=== PATIENT | male | born 1960 | race Caucasian/White ===

== ENCOUNTER 2017-01-31 17:33 | Inpatient (IN) ==
[2017-01-31 18:15] LABS: Bilirubin,Urine Negative (Negative); Blood,Urine Negative (Negative); Clarity,Urine Clear (Clear); Color,Urine Yellow (Yellow); Glucose,Urine (UA) Normal (Normal); Ketones,Urine Negative (Negative); Leukocyte Esterase,Urine Negative (Negative); Nitrite,Urine Negative (Negative); Protein,Urine Negative (Neg-Trace); Specific Gravity,Urine < 1.005 (1.010-1.025); Urobilinogen,Urine Normal (Normal)
[2017-01-31 18:17] LABS: Basophils # 0.1 K/mcL (0.0-0.2); Basophils % 0.5 %; Eosinophils # 0.2 K/mcL (0.0-0.6); Hematocrit 48.6 % (37.5-50.1); Hemoglobin 16.6 g/dL (12.9-16.9); Immature Granulocytes % 0.3 % (0-4); Lymphocytes # 2.6 K/mcL (0.6-4.6); Lymphocytes % 26.4 %; Mean Corpuscular HGB Conc 34.2 g/dL (31.6-35.5); Mean Corpuscular Hemoglobin 30.7 pg (28.0-33.3); Mean Platelet Volume 11.3 fL (9.4-12.4); Monocytes # 0.5 K/mcL (0.0-1.3); Monocytes % 5.3 %; Neutrophils # 6.5 K/mcL (1.6-8.9); Platelet Count 184 K/mcL (140-400); Red Cell Distribution Width 14.3 % (11.5-14.5); Segmented Neutrophils % 65.5 %
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
[2017-01-31 18:21] LABS: Amphetamine Screen,Urine Negative ng/mL (Cutoff=1000); Barbiturate Screen,Urine Negative ng/mL (Cutoff=200); Benzodiazepines Screen,Urine Negative ng/mL (Cutoff=200); Cannabinoid Screen,Urine Negative ng/mL (Cutoff = 50); Cocaine Screen,Urine Negative ng/mL (Cutoff= 300); Opiate Screen,Urine Negative ng/mL (Cutoff=300); Phencyclidine Screen,Urine Negative ng/mL (Cutoff=25)
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
[2017-01-31 18:32] LABS: Alanine Aminotransferase 13 Units/L (0-55); Albumin 3.5 g/dL (3.5-5.0); Albumin/Globulin Ratio 1.1 (1.1-2.2); Alkaline Phosphatase 70 Units/L (38-126); Aspartate Amino Transferase 20 Units/L (5-34); BUN/Creatinine Ratio 8 (6-26); Bilirubin,Total 0.3 mg/dL (0.2-1.2); Blood Urea Nitrogen 7 mg/dL (8-26); Carbon Dioxide 28 mEq/L (19-29); Chloride 108 mEq/L (98-109); Globulin 3.3 g/dL (2.4-3.5); Glucose 75 mg/dL (70-99); Osmolality,Calculated 293 (280-300); Potassium 4.2 mEq/L (3.5-4.5); Sodium 143 mEq/L (136-145); Total Protein 6.8 g/dL (6.0-8.3); eGFR For African Americans > 60 (> 60); eGFR For Non-African Americans > 60 (> 60)
[2017-01-31 18:42] LABS: Acetaminophen < 1.0 mcg/mL (10-30); Ethanol < 10 mg/dL (0-10); Salicylate < 5.0 mg/dL (15-30)
[2017-01-31] MEDS ORDERED: Haloperidol Lactate 5 MG/ML VIAL IM ONE (20:37)
[2017-01-31] MEDS ORDERED: *HR* LORazepam 2 MG/ML VIAL IM ONE (20:37)
--- NOTE | 2017-01-31 20:53 | Emergency Department Note ---
Disposition Clinical Impression: Suicidal ideation, Agitation Drug overdose Qualifiers: Encounter type: initial encounter Injury intent: undetermined intent Qualified Code(s): T50.904A - Poisoning by unspecified drugs, medicaments and biological substances, undetermined, initial encounter Disposition: Admitted As Inpatient Condition: Fair Referrals: NONE,PCP [Primary Care Provider] - Forms: ED Satisfaction Letter Time of Disposition: 21:12 General Adult HPI - General Chief complaint: ED Overdose Stated complaint: SI/OD Time Seen by Provider: 01/31/17 17:50 - History of Present Illness Pain Scale: 0 - Related Data Allergies Allergy/AdvReac Type Severity Reaction Status Date / Time No Known Allergies Allergy Verified 01/31/17 17:41 Past Medical History - Past Medical History Medical history: Reports: COPD Psychiatric history: Reports: anxiety - Social History Smoking Status: Current every day smoker Alcohol use: Reports: heavy, recent Drug use: Reports: prescription drug abuse Physical Exam - General General appearance: alert, appears intoxicated Course Course Narrative: This patient was signed out at shift change from Dr. Ignacio and Dr. Corona. Please refer to their notes for complete details of the history and physical examination. Patient presented with suicidal ideation and flight of ideas. He also took an overdose of his Klonopin. Family reported he took 10 pills however patient states he only took 2. Patient has prior history of suicide attempts. Patient has been medically cleared and is awaiting psychiatric consultation. Impression is that patient needs psychiatric inpatient admission. Patient was evaluated here in the emergency department by the [address] psychiatry service who also talked with patient's family. At reevaluation patient became agitated and combative. A pink slip was signed. Patient received Haldol 5 mg IM, Ativan 2 mg IM, and Benadryl 50 mg IM for sedation. He is being admitted here to the [address] psychiatry unit. Vital Signs Temperature 97.4 F L 01/31/17 17:35 Pulse Rate 81 01/31/17 17:35 Respiratory Rate 16 01/31/17 17:35 Blood Pressure 99/58 01/31/17 17:35 O2 Sat by Pulse Oximetry 96 01/31/17 17:35 Temperature 97.4 F L 01/31/17 17:35 Pulse Rate 80 01/31/17 18:09 Respiratory Rate 12 01/31/17 18:09 Blood Pressure 114/80 01/31/17 18:09 O2 Sat by Pulse Oximetry 97 01/31/17 18:09 Oxygen Delivery Oxygen Delivery Room Air Medical Decision Making - Lab Data Result diagrams: 01/31/17 18:06 01/31/17 18:08 Lab Results 01/31/17 01/31/17 01/31/17 Range/Units 18:00 18:00 18:06 WBC 9.9 (4.3-11.1) K/mcL RBC 5.40 (4.19-5.50) M/mcL Hgb 16.6 (12.9-16.9) g/dL Hct 48.6 (37.5-50.1) % MCV 90.0 (83.0-100.0) fL MCH 30.7 (28.0-33.3) pg MCHC 34.2 (31.6-35.5) g/dL RDW 14.3 (11.5-14.5) % Plt Count 184 (140-400) K/mcL MPV 11.3 (9.4-12.4) fL Immature Gran % 0.3 (0-4) % Seg Neutrophils % 65.5 % Lymphocytes % 26.4 % Monocytes % 5.3 % Eosinophils % 2.0 % Basophils % 0.5 % Neutrophils # 6.5 (1.6-8.9) K/mcL Lymphocytes # 2.6 (0.6-4.6) K/mcL Monocytes # 0.5 (0.0-1.3) K/mcL Eosinophils # 0.2 (0.0-0.6) K/mcL Basophils # 0.1 (0.0-0.2) K/mcL Sodium (136-145) mEq/L Potassium (3.5-4.5) mEq/L Chloride (98-109) mEq/L Carbon Dioxide (19-29) mEq/L BUN (8-26) mg/dL Creatinine (0.72-1.25) mg/dL Est GFR ( Amer) (> 60) Est GFR (Non-Af Amer) (> 60) BUN/Creatinine Ratio (6-26) Glucose (70-99) mg/dL Calculated Osmolality (280-300) Calcium (8.6-10.8) mg/dL Total Bilirubin (0.2-1.2) mg/dL AST (5-34) Units/L ALT (0-55) Units/L Alkaline Phosphatase (38-126) Units/L Serum Total Protein (6.0-8.3) g/dL Albumin (3.5-5.0) g/dL Globulin (2.4-3.5) g/dL Albumin/Globulin Ratio (1.1-2.2) Urine Color Yellow (Yellow) Urine Clarity Clear (Clear) Urine pH 7.0 (5.0-8.0) pH Units Ur Specific [place] < 1.005 L (1.010-1.025) Urine Protein Negative (Neg-Trace) mg/dL Urine Glucose (UA) Normal (Normal) mg/dL Urine Ketones Negative (Negative) mg/dL Urine Blood Negative (Negative) Urine Nitrite Negative (Negative) Urine Bilirubin Negative (Negative) Urine Urobilinogen Normal (Normal) mg/dL Ur Leukocyte Esterase Negative (Negative) Salicylates (15-30) mg/dL Urine Opiates Screen Negative (Qxmklf=806) ng/mL Acetaminophen (10-30) mcg/mL Ur Barbiturates Screen Negative (Pgsibm=629) ng/mL Ur Phencyclidine Scrn Negative (Cutoff=25) ng/mL Ur Amphetamines Screen Negative (Vuplbt=3149) ng/mL U Benzodiazepines Scrn Negative (Qxuprn=992) ng/mL Urine Cocaine Screen Negative (Cutoff= 300) ng/mL U Marijuana (THC) Screen Negative (Cutoff = 50) ng/mL Ethyl Alcohol (0-10) mg/dL 01/31/17 Range/Units 18:08 WBC (4.3-11.1) K/mcL RBC (4.19-5.50) M/mcL Hgb (12.9-16.9) g/dL Hct (37.5-50.1) % MCV (83.0-100.0) fL MCH (28.0-33.3) pg MCHC (31.6-35.5) g/dL RDW (11.5-14.5) % Plt Count (140-400) K/mcL MPV (9.4-12.4) fL Immature Gran % (0-4) % Seg Neutrophils % % Lymphocytes % % Monocytes % % Eosinophils % % Basophils % % Neutrophils # (1.6-8.9) K/mcL Lymphocytes # (0.6-4.6) K/mcL Monocytes # (0.0-1.3) K/mcL Eosinophils # (0.0-0.6) K/mcL Basophils # (0.0-0.2) K/mcL Sodium 143 (136-145) mEq/L Potassium 4.2 (3.5-4.5) mEq/L Chloride 108 (98-109) mEq/L Carbon Dioxide 28 (19-29) mEq/L BUN 7 L (8-26) mg/dL Creatinine 0.85 (0.72-1.25) mg/dL Est GFR ( Amer) > 60 (> 60) Est GFR (Non-Af Amer) > 60 (> 60) BUN/Creatinine Ratio 8 (6-26) Glucose 75 (70-99) mg/dL Calculated Osmolality 293 (280-300) Calcium 9.0 (8.6-10.8) mg/dL Total Bilirubin 0.3 (0.2-1.2) mg/dL AST 20 (5-34) Units/L ALT 13 (0-55) Units/L Alkaline Phosphatase 70 (38-126) Units/L Serum Total Protein 6.8 (6.0-8.3) g/dL Albumin 3.5 (3.5-5.0) g/dL Globulin 3.3 (2.4-3.5) g/dL Albumin/Globulin Ratio 1.1 (1.1-2.2) Urine Color (Yellow) Urine Clarity (Clear) Urine pH (5.0-8.0) pH Units Ur Specific [place] (1.010-1.025) Urine Protein (Neg-Trace) mg/dL Urine Glucose (UA) (Normal) mg/dL Urine Ketones (Negative) mg/dL Urine Blood (Negative) Urine Nitrite (Negative) Urine Bilirubin (Negative) Urine Urobilinogen (Normal) mg/dL Ur Leukocyte Esterase (Negative) Salicylates < 5.0 L (15-30) mg/dL Urine Opiates Screen (Xpmugs=905) ng/mL Acetaminophen < 1.0 L (10-30) mcg/mL Ur Barbiturates Screen (Eojped=479) ng/mL Ur Phencyclidine Scrn (Cutoff=25) ng/mL Ur Amphetamines Screen (Dnuiel=8897) ng/mL U Benzodiazepines Scrn (Fqgoit=746) ng/mL Urine Cocaine Screen (Cutoff= 300) ng/mL U Marijuana (THC) Screen (Cutoff = 50) ng/mL Ethyl Alcohol < 10 (0-10) mg/dL
[2017-01-31] MEDS ORDERED: Haloperidol Lactate 5 MG/ML VIAL IM PRN (23:24)
[2017-01-31] MEDS ORDERED: *HR* LORazepam 2 MG/ML VIAL IM PRN (23:24)
[2017-01-31] MEDS ORDERED: hydrOXYzine pamoate 25 MG CAPSULE PO PRN (23:24)
[2017-01-31] MEDS ORDERED: MOM Conc 10 ML UD.LIQ PO PRN (23:24)
[2017-01-31] MEDS ORDERED: Acetaminophen 325 MG TABLET PO PRN (23:24)
[2017-01-31] MEDS ORDERED: Mag Hydrox/Al Hydrox/Simeth 30 ML UDC PO PRN (23:24)
[2017-01-31] MEDS ORDERED: *HR* LORazepam 1 MG TABLET PO PRN (23:24)
[2017-01-31] MEDS ORDERED: traZODone 50 MG TABLET PO PRN (23:24)
[2017-02-01] MEDS: Nicotine 21 MG PATCH.TD24 TD SCH (09:11)
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
[2017-02-01] MEDS: BuPROPion XL (24 HR) 150 MG TABLET PO SCH (12:26)
[2017-02-02] MEDS: BuPROPion XL (24 HR) 150 MG TABLET PO SCH (09:59)
[2017-02-02] MEDS: Nicotine 21 MG PATCH.TD24 TD SCH (09:59)
--- NOTE | 2017-02-02 10:19 | Psychiatry Progress Note ---
Date of Encounter: 02/02/17 Time of Encounter: 10:15 Subjective Interval history: Looks much better today. Client doesn't notice a major change with the Wellbutrin but he is visibly better. Less tense. Less irritable. Smiling some. Denying any side effects from the Wellbutrin and interested in increasing dose for tomorrow and being discharged at a higher dose. Denies SI and wanting discharged today. Discussed staying one more night, especially if planning to try a higher dose of the Wellbutrin. This way he can also speak with Torri tomorrow and get set up with appointments. Seems more confident he can return home but may need housing referrals as well. Rather isolative on the unit but he does not come across as particularly social. Overall, he seems much improved. Review of Systems Constitutional: Denies: fever, chills, weakness, weight change Eyes: Denies: eye pain, vision change Ears, Nose, Throat: Denies: ear pain, throat pain, dental pain, hearing loss, congestion Cardiovascular: Denies: chest pain, palpitations, dyspnea on exertion Respiratory: Denies: cough, dyspnea, wheezes Gastrointestinal: Denies: abdominal pain, nausea, vomiting, diarrhea, constipation Musculoskeletal: Denies: joint swelling, joint pain Neurological: Denies: headache, weakness, numbness, memory loss Objective: Exam Patient orientation: Yes Person, Yes Time, Yes Place Level of alertness: Alert Patient appearance: Appropriate Behavior: calm, cooperative Psychomotor activity: Normal Eye contact: Maintains Eye Contact Mood description: Depressed Affect description: congruent with mood Speech pattern: Normal rate, Normal rhythm, Normal tone Speech volume: Normal Thought process: Linear, Goal Oriented Thought content: No Suicidal ideation, No Homicidal ideation, No Overt delusions Perceptual disturbances: No Auditory hallucinations, No Visual hallucinations Judgment: Limited Insight: Partial Results - Vital Signs Vital Signs: Temp Pulse Resp BP Pulse Ox 98.4 F 91 16 104/75 97 02/01/17 20:28 02/01/17 20:28 02/01/17 20:28 02/01/17 20:28 01/31/17 18:09 Assessment and Plan (1) Major depress dis, severe Current visit: Yes Status: Acute Plan: Continue hospitalization, Close observation, Suicide Precautions per unit protocol, Encourage participation in unit milieu, Group Therapy, Monitor sleep, Monitor appetite Risks, benefits, side effects, alternatives discussed w/pt: Yes Consult Discharge Plan - Plan Referrals: NONE,PCP [Primary Care Provider] -
--- NOTE | 2017-02-02 17:43 | Electrocardiograph Report ---
[address] [place] [address] Test Date: 2017-01-31 Pat Name: Leandro Chase Department: 103 Room: [facility] Gender: M Substance Abuse Clinician: BLAKE : 1960 Requested By: Taj Corona Order Number: [id number] Reading MD: Theo Sagastume MD Measurements Intervals [place] Rate: 72 P: 77 [place]: 132 QRS: 85 QRSD: 89 T: 58 QT: 384 QTc: 408 Interpretive Statements SINUS RHYTHM Electronically Signed On 02-02-2017 17:42:10 EST by Theo Sagastume MD
[2017-02-03] MEDS: Nicotine 21 MG PATCH.TD24 TD SCH (08:48)
[2017-02-03] MEDS ORDERED: BuPROPion XL (24 HR) 150 MG TABLET PO SCH (09:00)
[2017-02-03 10:25] VITALS: BP 106/68
--- NOTE | 2017-02-03 13:56 | Discharge Summary ---
Date of Encounter: 02/03/17 Time of Encounter: 10:45 Diagnosis - Discharge Diagnosis (1) Major depress dis, severe Status: Acute Medications - Discharge Medications Prescriptions: BuPROPion XL (24 HR) [Wellbutrin Xl] 300 mg PO DAILY #60 tab.er.24h hydrOXYzine pamoate [HydrOXYzine Pamoate] 25 mg PO TID PRN #90 capsule PRN Reason: Anxiety clonazePAM [Klonopin] 1 mg PO BID 01/31/17 [History] BuPROPion XL (24 HR) [Wellbutrin Xl] 300 mg PO DAILY #60 tab.er.24h 02/03/17 [Rx ] hydrOXYzine pamoate [HydrOXYzine Pamoate] 25 mg PO TID PRN #90 capsule 02/03/17 [Rx] 3 Allergy/AdvReac Type Severity Reaction Status Date / Time No Known Allergies Allergy Verified 01/31/17 17:41 Provider Date of admission: 01/31/17 23:24 Primary care physician: PCP NONE Discharging clinician: Leydi Gaffney Assessment and Plan - Patient/Caregiver Discharge Instructions Activity: resume usual activities as tolerated Diet: regular diet - Follow up Plan Follow up with: [facility] [Other] - 03/20/17 2:00 pm (You will see Skylar Xiao for outpatient psychiatric assessment and medication management services on 03/20/2017 at 2:00 PM. You are on the wait list to get in to see her sooner, and office staff expect they will be able to contact you for an earlier appointment.) [facility] [Other] (Hank Vilchis, PhD will contact you directly to schedule your next appointment. ) Functional capacity at discharge: independent ambulation Overall status at discharge: Stable Disposition: Home, Self-Care Hospital Course Hospital course: Mr. Chase is a 56 year old male with a history of depression and anxiety who presented to the hospital initially after reporting to his outpatient doctor that he overdosed on clonazepam. Patient was admitted to for psychiatric stabilization. He is incorporated into the therapeutic milieu and offer group and individual as well as recreational therapy. Patient was placed on suicide precautions and close observation for unit protocol. He felt that his outpatient medications were not working and reported some fatigue. His Lexapro and mirtazapine were discontinued and patient was started on Wellbutrin and titrated up to 300 mg by mouth daily. He tolerated medication well and states that his fatigue was improved somewhat. Patient admitted that he did state to someone that he was going to kill himself but he did not actually plan to hurt himself. "It was just a cry for help." Patient feels like his family would be upset if he did something to hurt himself and he does not want to do that. He does feel like his can be verbally abusive but he does care about his grandchild that he is raising. Patient was somewhat isolative during the hospital stay but on his final day of hospitalization did interact some with peers and staff. He reported some improvement in his mood. He denied suicidal or homicidal ideation, intent, or plan. Patient was willing to continue treatment as an outpatient. He is discharged in stable condition. Does patient wish to continue nicotine replacement upon disc: No - Time Spent with Patient Total time spent providing and/or coordinating discharge services: Greater than 30 minutes Quality - Multiple Antipsychotics Patient discharged on 2 or more antipsychotic medications: No Procedures - Procedures Procedures: Medication Management, Crisis Stabilization, Supportive Therapy, Group Therapy, Psychoeducational Therapy Mental Status Exam - Mental Status Exam Patient orientation: Yes Person, Yes Time, Yes Place Level of alertness: Alert Patient appearance: Appropriate, Well Groomed, Average Behavior: calm, cooperative Psychomotor activity: Normal Eye contact: Maintains Eye Contact Mood description: Euthymic/stable Affect description: congruent with mood, full range Speech pattern: Normal rate, Normal rhythm, Normal tone Speech Volume: Normal Thought process: Linear, Goal Oriented Thought Content: No Suicidal ideation, No Homicidal ideation, No Overt delusions Perceptual Disturbances: No Auditory hallucinations, No Visual hallucinations Judgment: Limited Insight: Partial
== END 2017-02-03 15:35 | disposition home or self-care (01) | DRG 751 ==
LOC: 1ANU 17:33 → EMEROO 17:33 → 1ANU 23:15
PROVIDERS: ADMIT Psychiatry & Neurology Psychiatry; ATTEND Psychiatry & Neurology Psychiatry